=== PATIENT | male | born 1975 | race Caucasian/White ===

== ENCOUNTER 2016-12-05 20:36 | Observation (INO) ==
[2016-12-05 21:31] LABS: Bilirubin,Urine Negative (Negative); Blood,Urine Trace (Negative); Clarity,Urine Clear (Clear); Color,Urine Yellow (Yellow); Glucose,Urine (UA) Normal (Normal); Ketones,Urine Negative (Negative); Leukocyte Esterase,Urine Negative (Negative); Nitrite,Urine Negative (Negative); PH,Urine 6.5 pH Units (5.0-8.0); Protein,Urine Negative (Neg-Trace); Specific Gravity,Urine 1.013 (1.010-1.025); Urobilinogen,Urine Normal (Normal)
[2016-12-05 21:32] LABS: RBC,Urine 0-3 per hpf (0-3); Squamous Epithelial Cell,Urine Few per lpf (None-Few)
[2016-12-05 21:33] LABS: Bacteria,Urine Few per hpf (None-Few)
[2016-12-05 22:01] LABS: Basophils # 0.1 K/mcL (0.0-0.2); Basophils % 0.3 %; Eosinophils # 0.1 K/mcL (0.0-0.6); Eosinophils % 0.8 %; Hematocrit 44.3 % (37.5-50.1); Hemoglobin 14.8 g/dL (12.9-16.9); Immature Granulocytes % 0.4 % (0-4); Lymphocytes # 2.5 K/mcL (0.6-4.6); Lymphocytes % 16.7 %; Mean Corpuscular HGB Conc 33.4 g/dL (31.6-35.5); Mean Corpuscular Hemoglobin 28.6 pg (28.0-33.3); Mean Corpuscular Volume 85.7 fL (83.0-100.0); Mean Platelet Volume 9.4 fL (9.4-12.4); Monocytes # 1.3 K/mcL (0.0-1.3); Monocytes % 8.8 %; Neutrophils # 11.1 K/mcL (1.6-8.9); Platelet Count 232 K/mcL (140-400); Red Blood Count 5.17 M/mcL (4.19-5.50); Red Cell Distribution Width 12.4 % (11.5-14.5)
[2016-12-05 22:02] LABS: WBC,Urine 0-3 per hpf (0-3)
[2016-12-05 22:18] LABS: Alanine Aminotransferase 27 Units/L (0-55); Albumin 3.8 g/dL (3.5-5.0); Albumin/Globulin Ratio 1.1 (1.1-2.2); Alkaline Phosphatase 47 Units/L (38-126); Aspartate Amino Transferase 14 Units/L (5-34); BUN/Creatinine Ratio 12 (6-26); Bilirubin,Direct 0.5 mg/dL (0.0-0.5); Bilirubin,Indirect 1.1 mg/dL (0.0-1.2); Bilirubin,Total 1.6 mg/dL (0.2-1.2); Blood Urea Nitrogen 12 mg/dL (8-26); Calcium 9.3 mg/dL (8.6-10.8); Carbon Dioxide 29 mEq/L (19-29); Chloride 102 mEq/L (98-109); Globulin 3.5 g/dL (2.4-3.5); Glucose 92 mg/dL (70-99); Lipase 20 Units/L (8-78); Osmolality,Calculated 291 (280-300); Potassium 4.1 mEq/L (3.5-4.5); Sodium 141 mEq/L (136-145); Total Protein 7.3 g/dL (6.0-8.3); eGFR For African Americans > 60 (> 60); eGFR For Non-African Americans > 60 (> 60)
--- NOTE | 2016-12-05 22:44 | Emergency Department Note ---
Disposition Clinical Impression: Acute appendicitis Qualifiers: Acute appendicitis type: with localized peritonitis Qualified Code(s): K35.3 - Acute appendicitis with localized peritonitis Disposition: Admitted As Inpatient Condition: Good Referrals: NO,PCP [Primary Care Provider] - Forms: ED Satisfaction Letter, Work/School Release Time of Disposition: 23:20 Abdominal Pain HPI - General Chief Complaint: ED Abdominal Pain Stated Complaint: right lower quadrant Pain Time Seen by Provider: 12/05/16 21:52 Source: patient - History of Present Illness Pain Scale: 6 - Related Data Allergies Allergy/AdvReac Type Severity Reaction Status Date / Time No Known Allergies Allergy Verified 12/05/16 21:07 Abdominal Pain PMH - Past Medical History Medical history: Reports: non-contributory Male Surgical History: Reports: no surgical history Psychiatric history: Reports: no psych history - Social History Smoking status: Never smoker Alcohol use: Reports: occasionally Drug use: Reports: none Physical Exam - General Limitations: no limitations General appearance: alert Course - Reevaluation(s) Reevaluation #1: I examined this patient and my medical decision-making was reviewed with the COUNTRY MANAGER/PA/Advanced Practice Nurse/Resident Physician. I agree with the documented findings, disposition and treatment plan as described except to the extent set forth below. ED attending note: Patient seen with family practice resident Dr. goodwin. Please see a copy of his note for details of the H&P, evaluation, management and disposition of this patient. We independently had [id number] contact with the patient Briefly: Patient presents with several days of increasing right lower quadrant pain found her guarding and no rebound. WBC of 15,000 with mild left shift. Patient had abdominal pelvic CT with acute appendicitis in the differential. Disposition pending. Time: 22:43 Reevaluation #2: CT results back by radiology as suggestive for acute appendicitis. Dr. Lugo general surgeon directional driller has been paged. Patient and his fiancee happened so informed. Disposition pending. Time: 23:14 Reevaluation #3: Skeletal case with the surgeon directional driller Dr. Lugo. She requested IV Zosyn and that she would operate tomorrow. Antibiotics were ordered. Patient's symptoms are being controlled with IV pain meds. Admission orders place. Patient stable. Time: 23:19 Vital Signs Temperature 98.9 F 12/05/16 21:03 Pulse Rate 107 12/05/16 21:03 Respiratory Rate 18 12/05/16 21:03 Blood Pressure 135/80 12/05/16 21:03 O2 Sat by Pulse Oximetry 99 12/05/16 21:03 Temperature 100.4 F H 12/05/16 22:47 Pulse Rate 94 12/05/16 22:47 Respiratory Rate 16 12/05/16 22:47 Blood Pressure 123/78 12/05/16 22:47 O2 Sat by Pulse Oximetry 97 12/05/16 22:47 Oxygen Delivery Oxygen Delivery Room Air Abdominal Pain - Lab Data Result diagrams: 12/05/16 21:56 12/05/16 21:56 Lab Results 12/05/16 12/05/16 12/05/16 Range/Units 20:50 21:56 21:56 WBC 15.2 H (4.3-11.1) K/mcL RBC 5.17 (4.19-5.50) M/mcL Hgb 14.8 (12.9-16.9) g/dL Hct 44.3 (37.5-50.1) % MCV 85.7 (83.0-100.0) fL MCH 28.6 (28.0-33.3) pg MCHC 33.4 (31.6-35.5) g/dL RDW 12.4 (11.5-14.5) % Plt Count 232 (140-400) K/mcL MPV 9.4 (9.4-12.4) fL Immature Gran % 0.4 (0-4) % Seg Neutrophils % 73.0 % Lymphocytes % 16.7 % Monocytes % 8.8 % Eosinophils % 0.8 % Basophils % 0.3 % Neutrophils # 11.1 H (1.6-8.9) K/mcL Lymphocytes # 2.5 (0.6-4.6) K/mcL Monocytes # 1.3 (0.0-1.3) K/mcL Eosinophils # 0.1 (0.0-0.6) K/mcL Basophils # 0.1 (0.0-0.2) K/mcL Sodium 141 (136-145) mEq/L Potassium 4.1 (3.5-4.5) mEq/L Chloride 102 (98-109) mEq/L Carbon Dioxide 29 (19-29) mEq/L BUN 12 (8-26) mg/dL Creatinine 1.02 (0.72-1.25) mg/dL Est GFR ( Amer) > 60 (> 60) Est GFR (Non-Af Amer) > 60 (> 60) BUN/Creatinine Ratio 12 (6-26) Glucose 92 (70-99) mg/dL Calculated Osmolality 291 (280-300) Calcium 9.3 (8.6-10.8) mg/dL Total Bilirubin 1.6 H (0.2-1.2) mg/dL Direct Bilirubin 0.5 (0.0-0.5) mg/dL Indirect Bilirubin 1.1 (0.0-1.2) mg/dL AST 14 (5-34) Units/L ALT 27 (0-55) Units/L Alkaline Phosphatase 47 (38-126) Units/L Serum Total Protein 7.3 (6.0-8.3) g/dL Albumin 3.8 (3.5-5.0) g/dL Globulin 3.5 (2.4-3.5) g/dL Albumin/Globulin Ratio 1.1 (1.1-2.2) Lipase 20 (8-78) Units/L Urine Color Yellow (Yellow) Urine Clarity Clear (Clear) Urine pH 6.5 (5.0-8.0) pH Units Ur Specific [place] 1.013 (1.010-1.025) Urine Protein Negative (Neg-Trace) mg/dL Urine Glucose (UA) Normal (Normal) mg/dL Urine Ketones Negative (Negative) mg/dL Urine Blood Trace H (Negative) Urine Nitrite Negative (Negative) Urine Bilirubin Negative (Negative) Urine Urobilinogen Normal (Normal) mg/dL Ur Leukocyte Esterase Negative (Negative) Urine Microscopic RBC 0-3 (0-3) per hpf Urine Microscopic WBC 0-3 (0-3) per hpf Ur Squamous Epith Cells Few (None-Few) per lpf Urine Bacteria Few (None-Few) per hpf Ur Culture Indicated? NO (NO)
[2016-12-05] MEDS ORDERED: Ondansetron 4 MG/2 ML VIAL IVP ONE (23:00)
[2016-12-05] MEDS ORDERED: *HR* HYDROmorphone (PF) 1 MG/ML SYRINGE IVP ONE (23:00)
--- NOTE | 2016-12-05 23:03 | Emergency Department Note ---
Disposition Clinical Impression: Abdominal pain Qualifiers: Abdominal location: right lower quadrant Qualified Code(s): R10.31 - Right lower quadrant pain Disposition: Still a Patient Condition: Fair Referrals: NO,PCP [Primary Care Provider] - Forms: Work/School Release, ED Satisfaction Letter Time of Disposition: 23:10 Abdominal Pain HPI - General Chief Complaint: ED Abdominal Pain Stated Complaint: right lower quadrant Pain Time Seen by Provider: 12/05/16 21:52 Source: patient Mode of arrival: ambulatory Limitations: no limitations Nursing Notes Reviewed: Yes Vital Signs Reviewed: Yes - History of Present Illness HPI Narrative: Mr. Nguyen is a 41 year old male that presents with right lower quadrant pain beginning at 4 AM yesterday morning. Patient reports subjective fever and chills. He describes right lower quadrant pain is a sharp cramping pain, though more dull pain today. Worse with movement, riding in a car; better with warm bath. Admits to nausea, but denies vomiting. Denies radiation of pain. Patient states he feels as though his abdomen is more swollen than normal. Patient does note history of hemorrhoids with intermittent bleeding. Denies any other GI history. Pt Subjective Complaint: abdominal pain Onset (ago): day(s) Consistency: constant Location: RLQ Pain Severity: moderate Pain Scale: 6 Quality: cramping Radiation: none Migration to: no migration Improves with: other Worsens with: movement - Related Data Allergies Allergy/AdvReac Type Severity Reaction Status Date / Time No Known Allergies Allergy Verified 12/05/16 21:07 All systems ED: reviewed and negative except as stated. Constitutional: Reports: chills Eyes: Denies: vision change ENT ED: Denies: hearing loss Cardiovascular: Denies: chest pain Respiratory: Denies: cough, dyspnea Gastrointestinal: Reports: abdominal pain, nausea, diarrhea (loose stool x once) , hematochezia (noted past two days). Denies: vomiting, hematemesis, melena Genitourinary: Denies: dysuria, frequency, hematuria, testicular pain, testicular mass Musculoskeletal: Reports: back pain Neurological: Denies: headache Psychiatric: Denies: anxiety Endocrine: Denies: fatigue Hematological/Lymphatic: Denies: easy bleeding, easy bruising Abdominal Pain PMH - Past Medical History Medical history: Reports: other (hemorrhoids) Male Surgical History: Reports: orthopedic, other (R wrist) Psychiatric history: Reports: no psych history - Social History Smoking status: Never smoker Alcohol use: Reports: occasionally Drug use: Reports: none Physical Exam - General Limitations: no limitations General appearance: alert, in no apparent distress - Head Head exam: atraumatic, normocephalic - Eye Eye exam: Present: normal appearance, EOMI - ENT ENT exam: normal exam, mucous membranes moist - Neck Neck exam: Present: normal inspection, full ROM - Chest Chest inspection: Present: normal inspection, symmetric chest wall rise. Absent : tenderness - Respiratory Respiratory exam: Present: normal lung sounds bilaterally. Absent: respiratory distress, wheezes - Cardiovascular Cardiovascular exam: Present: regular rate, normal rhythm, +S1, +S2 - Abdominal Exam Abdominal exam: Present: soft, tenderness, normal bowel sounds. Absent: distention, guarding, rebound, rigidity, Conklin's sign, ascites, mass, bruit, hernia Abdominal tenderness: Present: RLQ - Extremities Exam Extremities exam: Present: normal inspection. Absent: tenderness, pedal edema - Back Exam Back exam: Present: normal inspection. Absent: tenderness, CVA tenderness (R), CVA tenderness (L) - Neurological Exam Neurological exam: Present: alert, oriented X3 - Psychiatric Psychiatric exam: Present: normal affect, normal mood - Skin Skin exam: Present: warm, dry, intact, normal color. Absent: rash, erythema Course Vital Signs Temperature 98.9 F 12/05/16 21:03 Pulse Rate 107 12/05/16 21:03 Respiratory Rate 18 12/05/16 21:03 Blood Pressure 135/80 12/05/16 21:03 O2 Sat by Pulse Oximetry 99 12/05/16 21:03 Temperature 98.9 F 12/05/16 21:03 Pulse Rate 107 12/05/16 21:03 Respiratory Rate 18 12/05/16 21:03 Blood Pressure 135/80 12/05/16 21:03 O2 Sat by Pulse Oximetry 99 12/05/16 21:03 Oxygen Delivery Oxygen Delivery Room Air Abdominal Pain - MDM Narrative Medical decision making narrative: Concern for acute appendicitis with patient's history and presentation. Pending CT study. Discussed case with Dr. Chacko that will follow up of study and be taking over care of patient at this time, 23:00. - Lab Data Result diagrams: 12/05/16 21:56 12/05/16 21:56 Lab Results 12/05/16 12/05/16 12/05/16 Range/Units 20:50 21:56 21:56 WBC 15.2 H (4.3-11.1) K/mcL RBC 5.17 (4.19-5.50) M/mcL Hgb 14.8 (12.9-16.9) g/dL Hct 44.3 (37.5-50.1) % MCV 85.7 (83.0-100.0) fL MCH 28.6 (28.0-33.3) pg MCHC 33.4 (31.6-35.5) g/dL RDW 12.4 (11.5-14.5) % Plt Count 232 (140-400) K/mcL MPV 9.4 (9.4-12.4) fL Immature Gran % 0.4 (0-4) % Seg Neutrophils % 73.0 % Lymphocytes % 16.7 % Monocytes % 8.8 % Eosinophils % 0.8 % Basophils % 0.3 % Neutrophils # 11.1 H (1.6-8.9) K/mcL Lymphocytes # 2.5 (0.6-4.6) K/mcL Monocytes # 1.3 (0.0-1.3) K/mcL Eosinophils # 0.1 (0.0-0.6) K/mcL Basophils # 0.1 (0.0-0.2) K/mcL Sodium 141 (136-145) mEq/L Potassium 4.1 (3.5-4.5) mEq/L Chloride 102 (98-109) mEq/L Carbon Dioxide 29 (19-29) mEq/L BUN 12 (8-26) mg/dL Creatinine 1.02 (0.72-1.25) mg/dL Est GFR ( Amer) > 60 (> 60) Est GFR (Non-Af Amer) > 60 (> 60) BUN/Creatinine Ratio 12 (6-26) Glucose 92 (70-99) mg/dL Calculated Osmolality 291 (280-300) Calcium 9.3 (8.6-10.8) mg/dL Total Bilirubin 1.6 H (0.2-1.2) mg/dL Direct Bilirubin 0.5 (0.0-0.5) mg/dL Indirect Bilirubin 1.1 (0.0-1.2) mg/dL AST 14 (5-34) Units/L ALT 27 (0-55) Units/L Alkaline Phosphatase 47 (38-126) Units/L Serum Total Protein 7.3 (6.0-8.3) g/dL Albumin 3.8 (3.5-5.0) g/dL Globulin 3.5 (2.4-3.5) g/dL Albumin/Globulin Ratio 1.1 (1.1-2.2) Lipase 20 (8-78) Units/L Urine Color Yellow (Yellow) Urine Clarity Clear (Clear) Urine pH 6.5 (5.0-8.0) pH Units Ur Specific [place] 1.013 (1.010-1.025) Urine Protein Negative (Neg-Trace) mg/dL Urine Glucose (UA) Normal (Normal) mg/dL Urine Ketones Negative (Negative) mg/dL Urine Blood Trace H (Negative) Urine Nitrite Negative (Negative) Urine Bilirubin Negative (Negative) Urine Urobilinogen Normal (Normal) mg/dL Ur Leukocyte Esterase Negative (Negative) Urine Microscopic RBC 0-3 (0-3) per hpf Urine Microscopic WBC 0-3 (0-3) per hpf Ur Squamous Epith Cells Few (None-Few) per lpf Urine Bacteria Few (None-Few) per hpf Ur Culture Indicated? NO (NO)
[2016-12-05] MEDS ORDERED: Piperacillin/Tazobactam 3.375 GM in D5% in Water (Mini-Bag+) 100 ML IVPB ONE (23:18)
[2016-12-06] MEDS ORDERED: Ondansetron 4 MG/2 ML VIAL IVP PRN ×2 (01:43→17:04)
[2016-12-06] MEDS ORDERED: 0.9 % Sodium Chloride 1,000 ML IVC SCH (01:45)
[2016-12-06] MEDS: *HR* Morphine 2 MG/ML SYRINGE IVP PRN ×5 (04:03→18:34)
[2016-12-06] MEDS ORDERED: Pantoprazole 40 MG VIAL IVP SCH (06:30)
[2016-12-06] MEDS ORDERED: Piperacillin/Tazobactam 3.375 GM in D5% in Water (Mini-Bag+) 100 ML IVPB SCH (08:00)
--- NOTE | 2016-12-06 08:26 | General Surg History&Physical ---
<Rashad Wayne Chinmay - Last Filed: 12/06/16 08:20> Date of Encounter: 12/06/16 Time of Encounter: 08:20 Assessment and Plan (1) Acute appendicitis Current Visit: Yes Status: Acute The assessment and plan as outlined above was discussed with the patient and/or family members who expressed understanding and agreement. All questions were answered. Patient with acute RLQ pain with associated subjective fevers, chills, nausea, and leukocytosis (15.2). no bands. RLQ exquisitely tender to palpation CT A/P: 1. Acute appendicitis. Inflamed appendix measuring 18 mm with significant periappendiceal inflammatory changes and multiple small nodes. No abscess, free air or free fluid. 2. Otherwise no acute findings within the abdomen or pelvis. 3. Hepatic steatosis. Plan: NPO, IVF NS @125ml/hr, antiemetics, pain control, Zosyn, Gi prophylaxis. Likely to go to OR today for appendectomy. Qualifiers: Acute appendicitis type: unspecified acute appendicitis type Qualified Code (s): K35.80 - Unspecified acute appendicitis (2) DVT prophylaxis Current Visit: Yes Status: Acute The assessment and plan as outlined above was discussed with the patient and/or family members who expressed understanding and agreement. All questions were answered. EPCD's History of Present Illness Chief complaint: Abdominal Pain HPI: Mr. Nguyen is a 41 year old male who presented to [facility] ED with right lower quadrant abdominal pain. The pain began acutely on in the RLQ. He described the pain as sharp and stabbing, 10/10, non-radiating, mild improvement with tylenol, alleve, and boubacar-seltzer. It is worse with movement and better with rest and hot bath. He has never had pain like this before. It was associated with nausea, subjective fevers, and chills. He denies emesis, diarrhea, constipation, diaphoresis, melena, chest pain, sob. He takes no medications regularly and states he has no known medication allergies. Past Med Surg Social Fam HX - Past Medical History Medical history: non-contributory Psychiatric history: no psych history - Past Surgical History Surgical History: orthopedic, other - Social History Smoking Status: Never smoker Alcohol use: occasionally Drug use: none - Family History Mother Living Status: Still Living Hx Family Endocrine Disorder: Yes Medications and Allergies No Known Home Drugs 12/06/16 [History] Allergies No Known Allergies Allergy (Verified 12/05/16 21:07) Review of Systems All systems PM: A 10-system review of systems was performed and is negative for pertinent findings except as documented above in the HPI. General Surgery Exam Initial Vital Signs Temp Pulse Resp BP Pulse Ox 98.9 F 107 18 135/80 99 12/05/16 21:03 12/05/16 21:03 12/05/16 21:03 12/05/16 21:03 12/05/16 21:03 - General physical appearance well developed, well nourished, no distress - Eyes PERRL, normal ocular movement - Neck trachea midline - Respiratory normal expansion, clear to auscultation - Cardiovascular Cardiovascular exam: Present: RRR, no murmurs/rubs/gallops - Abdomen Abdomen general surgery: Present: bowel sounds present, soft, tender. Absent: guarding, rebound, rigid Abdominal Tenderness: Present: RLQ - Neurologic Present: CN 2-12 grossly intact - Psychiatric Psychiatric general surgery: Present: A&Ox3 Results - Labs 12/05/16 21:56 12/05/16 21:56 Abnormal lab results WBC 15.2 K/mcL (4.3-11.1) H 12/05/16 21:56 Neutrophils # 11.1 K/mcL (1.6-8.9) H 12/05/16 21:56 Total Bilirubin 1.6 mg/dL (0.2-1.2) H 12/05/16 21:56 Urine Blood Trace (Negative) H 12/05/16 20:50 All other labs normal. - VTE Documentation of Mechanical Device: Intermittent pneumatic compression device <Jackelyn Paul - Last Filed: 12/06/16 17:47> Date of Encounter: 12/06/16 Assessment and Plan (1) Acute appendicitis Current Visit: Yes Status: Acute the ct results and labs were discussed with patient. Will plan laparoscopic appendectomy, possile open, risks and benefits discussed and he wishes to proceed. zosyn for Abx npo prn pain control prn antiemetics gi/dvt prophylaxis. The assessment and plan as outlined above was discussed with the patient and/or family members who expressed understanding and agreement. All questions were answered. Qualifiers: Acute appendicitis type: unspecified acute appendicitis type Qualified Code (s): K35.80 - Unspecified acute appendicitis (2) DVT prophylaxis Current Visit: Yes Status: Acute The assessment and plan as outlined above was discussed with the patient and/or family members who expressed understanding and agreement. All questions were answered. History of Present Illness HPI: Mr. Nguyen is a 41 year old male Review of Systems All systems PM: A 10-system review of systems was performed and is negative for pertinent findings except as documented above in the HPI. General Surgery Exam Initial Vital Signs Temp Pulse Resp BP Pulse Ox 98.9 F 107 18 135/80 99 12/05/16 21:03 12/05/16 21:03 12/05/16 21:03 12/05/16 21:03 12/05/16 21:03 - General physical appearance well developed, well nourished, moderate distress, moderate pain, obese - Eyes PERRL, normal ocular movement - ENT normal mucosa, atraumatic, normocephalic - Respiratory normal expansion, clear to auscultation - Cardiovascular Cardiovascular exam: Present: RRR - Abdomen Abdomen general surgery: Present: bowel sounds present, soft, tender. Absent: distended, guarding, rebound Abdominal Tenderness: Present: RLQ, diffusely - Integumentary Integumentary general surgery: Present: warm and dry, no abnormal pigmentation - Neurologic Present: CN 2-12 grossly intact - Musculoskeletal Present: normal posture - Psychiatric Psychiatric general surgery: Present: A&Ox3, speech is normal Results - Labs 12/05/16 21:56 12/05/16 21:56 Short CBC 12/05/16 Range/Units 21:56 WBC 15.2 H (4.3-11.1) K/mcL Hgb 14.8 (12.9-16.9) g/dL Hct 44.3 (37.5-50.1) % Plt Count 232 (140-400) K/mcL Neutrophils # 11.1 H (1.6-8.9) K/mcL BMP 12/05/16 Range/Units 21:56 Sodium 141 (136-145) mEq/L Potassium 4.1 (3.5-4.5) mEq/L Chloride 102 (98-109) mEq/L Carbon Dioxide 29 (19-29) mEq/L BUN 12 (8-26) mg/dL Creatinine 1.02 (0.72-1.25) mg/dL Glucose 92 (70-99) mg/dL Calcium 9.3 (8.6-10.8) mg/dL Cardiac Enzymes 12/06/16 Range/Units 10:51 Troponin I 0.00 (0-0.03) ng/mL Liver Function 12/05/16 Range/Units 21:56 Total Bilirubin 1.6 H (0.2-1.2) mg/dL Direct Bilirubin 0.5 (0.0-0.5) mg/dL AST 14 (5-34) Units/L ALT 27 (0-55) Units/L Alkaline Phosphatase 47 (38-126) Units/L Albumin 3.8 (3.5-5.0) g/dL Urine 12/05/16 Range/Units 20:50 Urine Color Yellow (Yellow) Urine Clarity Clear (Clear) Urine pH 6.5 (5.0-8.0) pH Units Ur Specific [place] 1.013 (1.010-1.025) Urine Protein Negative (Neg-Trace) mg/dL Urine Glucose (UA) Normal (Normal) mg/dL Vital Signs Temp Pulse Resp BP Pulse Ox 12/06/16 17:36 99.1 F 83 16 120/65 94 12/06/16 17:06 97.6 F 86 15 123/81 94 12/06/16 16:52 99.3 F 80 16 125/84 93 12/06/16 16:42 80 16 129/80 92 12/06/16 16:32 103 16 119/67 96 12/06/16 16:22 98.3 F 95 16 128/65 96 12/06/16 11:40 99.0 F 89 16 116/68 98 12/06/16 06:24 98.3 F 87 16 129/68 95 12/06/16 01:19 98.1 F 85 16 127/74 94 12/06/16 00:11 98.4 F 16 104/66 12/05/16 22:47 100.4 F H 94 16 123/78 97 12/05/16 21:03 98.9 F 107 18 135/80 99 Intake and Output 12/06/16 12/06/16 12/06/16 07:59 15:59 23:59 Intake Total 100 / 100 Output Total 20 / 20 Balance 100 / 100 -20 / -20 Intake: IV Fluids 100 / 100 Zosyn 3.375 GM In 100 / 100 Dextrose 5% (Minibag+) 100 ML 100 ML @ 25 mls/hr IVPB Q8HR [facility] Rx#: [id number] Output: Estimated Blood Loss Other: # Voids 1 - Imaging CT scan - abdomen: report reviewed, image reviewed CT scan - pelvis: report reviewed, image reviewed - Attending Attestation I examined this patient and my medical decision-making was reviewed with the FUR CLEANER/PA/Advanced Practice Nurse/Resident Physician. I agree with the documented findings, disposition and treatment plan as described except to the extent set forth below.
[2016-12-06] MEDS ORDERED: Naloxone 0.4 MG/ML INJ IVP PRN ×2 (09:24→17:04)
--- NOTE | 2016-12-06 13:23 | Anesthesia Evaluation PreOp ---
Date of Encounter: 12/06/16 Time of Encounter: 13:22 - Past History Planned Operation: Lap appendectomy Cardiac History: Denies any Significant Hx Pulmonary History: Denies Any Significant HX JEWEL GAUGER History: Denies Any Significant HX Other Medical History: Denies Any Significant HX Anesthesia History: No Prior Anesthetic Complications, Past Anesthesia (R wrist) Alcohol Use: occasionally Drug use: none Medications and Allergies No Known Home Drugs 12/06/16 [History] Allergies No Known Allergies Allergy (Verified 12/05/16 21:07) - Meds/Allergy Pre-op Review Medications Reviewed: Yes Allergies Reviewed: Yes Beta Blockers on Current Med List: No Anesthesia Results - Labs 12/05/16 21:56 12/05/16 21:56 - Imaging EKG: image reviewed (SR) Anesthesia Exam Vital Signs/O2 Sat, Most Current Temp Pulse Resp BP Pulse Ox 99.0 F 89 16 116/68 98 12/06/16 11:40 12/06/16 11:40 12/06/16 11:40 12/06/16 11:40 12/06/16 11:40 Weight: 109kg NPO (# of Hours): >8 - HEENT Pupil (Motor): Pupils equal, EOMI Mallampati: III Teeth: Normal Oral Opening: Less than or equal to 3 - JEWEL GAUGER LOC: Oriented JEWEL GAUGER Motor: Normal RUE, Normal LUE, Normal RLE, Normal LLE, Normal Face JEWEL GAUGER Sensory: Normal: RUE, LUE, RLE, LLE, Face - Cardiac Rhythm: Regular Murmur: None - Pulmonary Breath Sounds: bilateral Clear Respiratory Effort: Symmetrical Anesthesia Assess/Plan ASA Score: 2, E Modified [place] Scale for Level of Consciousness: Cooperative, oriented, and tranquil Anesthetic Plan: General (GETA, r/b/a discussed, questions answered, consent obtained) Monitoring Plan: Standard Monitors Recovery Plan: PACU
[2016-12-06] MEDS ORDERED: Lidocaine -MPF 2% 2 ML VIAL ONE (13:27)
[2016-12-06] MEDS ORDERED: *HR* Rocuronium Bromide 50 MG/5 ML VIAL ONE (13:27)
[2016-12-06] MEDS ORDERED: *HR* Propofol 200 MG/20 ML VIAL IVP ONE (13:27)
[2016-12-06] MEDS ORDERED: Lidocaine -MPF 4% 5 ML AMPUL ONE (13:27)
[2016-12-06] MEDS ORDERED: *HR* FentaNYL (PF) 100 MCG/2 ML VIAL ONE (13:28)
[2016-12-06] MEDS ORDERED: *HR* Midazolam HCl 2 MG/2 ML VIAL ONE (13:28)
[2016-12-06] MEDS ORDERED: Ringers Solution, Lactated 1,000 ML ONE (14:14)
[2016-12-06] MEDS ORDERED: Ringers Solution, Lactated 1,000 ML IVC SCH ×2 (14:30→15:15)
[2016-12-06] MEDS ORDERED: *HR* Succinylcholine 200 MG/10 ML VIAL IVP ONE (14:42)
[2016-12-06] MEDS ORDERED: Ondansetron 4 MG/2 ML VIAL ONE (15:06)
[2016-12-06] MEDS ORDERED: Dexamethasone 4 MG/ML VIAL ONE ×2 (15:06)
[2016-12-06] MEDS ORDERED: Neostigmine Methylsulfate 3 MG/3 ML SYRINGE ONE (15:15)
[2016-12-06] MEDS ORDERED: Ondansetron 4 MG/2 ML VIAL IVP ONE (15:15)
[2016-12-06] MEDS ORDERED: *HR* Promethazine 25 MG/ML VIAL IVP PRN (15:15)
[2016-12-06] MEDS ORDERED: *HR* Meperidine 25 MG/ML SYRINGE IVP PRN (15:15)
[2016-12-06] MEDS ORDERED: *HR* Labetalol 100 MG/20 ML MDV IVP PRN (15:15)
[2016-12-06] MEDS ORDERED: *HR* HYDROmorphone (PF) 1 MG/ML SYRINGE IVP PRN ×2 (15:15→17:04)
[2016-12-06] MEDS ORDERED: *HR* HYDROmorphone 2 MG/ML SYRINGE ONE (15:19)
--- NOTE | 2016-12-06 16:00 | Operative Note ---
Date of procedure: 12/06/16 Pre-op diagnosis: acute appendicitis Post-op diagnosis: same Procedure: Laparoscopic appendectomy Complications: none immediate Anesthesia: GETA, local Local Anesthetics: 0.5% Sensorcaine HCL SubQ (cc) (30) Surgeon: Jackelyn Paul Estimated blood loss (cc): 20 Specimen: appendix Condition: stable Disposition: PACU Procedure in Detail: The patient was brought into the operating suite and placed supine on the operating table. Sign-in was performed and everyone was in agreement. Anesthesia was induced and patient was endotracheally intubated by anesthesia without incident. An OG tube was placed by anesthesia. The abdomen was prepped and draped in the usual sterile fashion. A timeout was performed and again everyone was in agreement. A supraumbilical incision was made through the skin and the subcutaneous tissue with an 11 blade. Towel clamps were placed on either side of the umbilicus for retraction. S-retractors were used to dissect down to the anterior abdominal wall linea alba fascia. A Veress needle was placed into this incision and a water drop test confirmed placement and the abdomen was insufflated. We then entered the abdomen with the 5 mm 0 degree laparoscope on a 5 mm X-dianne trocar. The area under entry was visualized and there was no bleeding and no apparent bowel injury. We placed a suprapubic 5 mm port under direct visualization after first incising the skin with an 11 blade. The laparoscope was placed through this and we exchanged the supraumbilical port for a 12 mm port under direct visualization. We then placed another 5 mm port in the left lower quadrant position under direct visualization after first incising the skin with an 11 blade. The patient was placed in slight Trendelenburg left side down position. The cecum was located as was the appendix. The appendix was adhesed with inflammation to the terminal ileum, and was from each other by gentle blunt dissection and grasped and retracted anteriorly and caudally with a laparoscopic Lachelle. A [place] was used to dissect between the mesoappendix and the appendix at the base of the cecum. THere was a lot of fibrinous material in the RLQ. The mesoappendix was transected with a laparoscopic flex-ex ETS stapler using a white load. The appendix was transected at the base of the cecum with the same stapler utilizing a white load. There was bleeding at the meseappendix base which was controlled with one 5mm metal hemoclip. The appendix was placed in a laparoscopic Endo Catch bag and removed via the supraumbilical incision site. Both staple lines were evaluated and there was no bleeding and both staple lines were intact. The area was copiously irrigated with sterile saline which was then suctioned free from the abdomen. The insufflation was suctioned free from the abdomen and all trochars removed. We closed the abdominal wall at the supraumbilical incision site with an 0 Vicryl ojugxa-po-cbmmb stitch. A 30 cc of 0.5% Marcaine was injected subcutaneously at the 3 port sites. The skin at the two 5 mm port sites was closed with 4-0 Monocryl interrupted subcuticular stitches. The skin at the supraumbilical incision site was closed with a 4-0 Monocryl running subcuticular stitch. Steri-Strips and mastisol were applied to the wounds. The patient was extubated in the OR and tolerated the procedure well and was taken to PACU after all lap and instrument counts were correct at the end of the case.
--- NOTE | 2016-12-06 16:57 | Anesthesia Evaluation Post Op ---
Date of Encounter: 12/06/16 Time of Encounter: 16:55 - Vital Signs Vital Signs: vss - Lungs Lungs: Clear Ascult./Percussion (enc cough/breathing and IS usage.) - Airway Airway: Non-obstructed - Cardiovascular Baseline Rhythm - Mental Status Mental Status: Alert & Oriented, Answers Appropriately - Pain Pain Scale used: Loi (Faces) - Nausea Vomiting Nausea Vomiting: Not Present - Hydration Hydration: Ice chips - Discharge PostOp Status: Transfer Patient to floor
[2016-12-06] MEDS: *HR* OxyCODONE/APAP 5/325 TABLET PO PRN (17:23)
[2016-12-06] MEDS: 0.9 % Sodium Chloride 1,000 ML IVC SCH (17:24)
[2016-12-07] MEDS: *HR* OxyCODONE/APAP 5/325 TABLET PO PRN ×4 (00:27→13:29)
[2016-12-07] MEDS: Piperacillin/Tazobactam 3.375 GM in D5% in Water (Mini-Bag+) 100 ML IVPB SCH ×2 (00:27→07:32)
[2016-12-07] MEDS: 0.9 % Sodium Chloride 1,000 ML IVC SCH (00:32)
[2016-12-07] MEDS: *HR* Morphine 2 MG/ML SYRINGE IVP PRN (02:58)
[2016-12-07 05:44] LABS: Basophils % 0.1 %; Hematocrit 37.3 % (37.5-50.1); Hemoglobin 12.1 g/dL (12.9-16.9); Immature Granulocytes % 0.7 % (0-4); Lymphocytes # 1.2 K/mcL (0.6-4.6); Lymphocytes % 9.3 %; Mean Corpuscular HGB Conc 32.4 g/dL (31.6-35.5); Mean Corpuscular Hemoglobin 28.1 pg (28.0-33.3); Mean Corpuscular Volume 86.7 fL (83.0-100.0); Mean Platelet Volume 9.6 fL (9.4-12.4); Monocytes # 0.9 K/mcL (0.0-1.3); Monocytes % 6.8 %; Neutrophils # 10.4 K/mcL (1.6-8.9); Platelet Count 225 K/mcL (140-400); Red Cell Distribution Width 12.1 % (11.5-14.5); Segmented Neutrophils % 83.1 %
[2016-12-07 06:14] LABS: BUN/Creatinine Ratio 9 (6-26); Blood Urea Nitrogen 9 mg/dL (8-26); Calcium 8.8 mg/dL (8.6-10.8); Carbon Dioxide 25 mEq/L (19-29); Chloride 104 mEq/L (98-109); Glucose 177 mg/dL (70-99); Osmolality,Calculated 291 (280-300); Potassium 4.2 mEq/L (3.5-4.5); Sodium 139 mEq/L (136-145); eGFR For African Americans > 60 (> 60); eGFR For Non-African Americans > 60 (> 60)
[2016-12-07] MEDS ORDERED: Pantoprazole 40 MG VIAL IVP SCH (06:30)
--- NOTE | 2016-12-07 10:13 | Discharge Summary ---
Date of Encounter: 12/07/16 Time of Encounter: 10:09 - Discharge Diagnosis (1) Acute appendicitis Priority: Primary Status: Resolved Qualifiers: Acute appendicitis type: unspecified acute appendicitis type Qualified Code (s): K35.80 - Unspecified acute appendicitis - Discharge Medications Prescriptions: OxyCODONE/APAP 5/325 [Percocet 5/325 MG] 1 each PO Q4HR PRN #30 tablet PRN Reason: Pain Docusate [Colace] 100 mg PO BID #30 capsule Home Medications: Docusate [Colace] 100 mg PO BID #30 capsule 12/07/16 [Rx] OxyCODONE/APAP 5/325 [Percocet 5/325 MG] 1 each PO Q4HR PRN #30 tablet 12/07/16 [Rx] Allergies/Adverse Reactions: Allergies No Known Allergies Allergy (Verified 12/05/16 21:07) General Surgery Exam Initial Vital Signs Temp Pulse Resp BP Pulse Ox 98.9 F 107 18 135/80 99 12/05/16 21:03 12/05/16 21:03 12/05/16 21:03 12/05/16 21:03 12/05/16 21:03 - General physical appearance well developed, well nourished, no distress - Eyes normal ocular movement - ENT normal mucosa, atraumatic, normocephalic - Neck trachea midline - Respiratory normal respiratory effort, clear to auscultation - Cardiovascular Cardiovascular exam: Present: RRR, 15, 16 - Abdomen Abdomen general surgery: Present: bowel sounds present, soft, tender (expected post-operative tenderness) - Incision Incision: Present: clean and dry, intact - Integumentary Integumentary general surgery: Present: warm and dry - Neurologic Present: CN 2-12 grossly intact - Musculoskeletal Present: normal gait, normal posture - Psychiatric Psychiatric general surgery: Present: appropriate, oriented to person, oriented to place, oriented to time, speech is normal, memory intact Date of admission: 12/05/16 23:45 Primary care physician: PCP GIULIA Discharging clinician: Jackelyn Paul (Earlene Juarez) Anticipated date of discharge: 12/07/16 - Patient Status Disposition: Home, Self-Care Condition: Good Overall status at discharge: patient is back to baseline - Discharge Instructions Follow Up With: GIULIA,PCP [Primary Care Provider] - Eliane Juarez [employer]ENT [Advanced Practice Nurse] - 12/22/16 8:45 am (surgery follow-up) Additional Instructions: Surgical instructions: #1 May shower today, no tub bath X 2 weeks #2 Wash incisions with soap and water and pat dry daily #3 No lifting/pushing/pulling greater than 15 lb. X 2 weeks #4 No driving until off narcotics for 24 hours and able to safely react in the car #5 May climb stairs - Diet and Activity Activity: other (See additional instructions) Diet: advance to your usual diet - Hospital Course Hospital course: Mr. Nguyen is a 41 year old male presented to the hospital with acute onset of abdominal pain. He was found to have acute appendicitis and was taken to the operating room for a laparoscopic appendectomy with Dr. Paul. On POD #1 he is doing well. His vitals are stable and he is afebrile, he is tolerating liquids without nausea/vomiting, his pain is controlled, he is voiding and ambulating without difficulty. We will advance him to regular diet and plan to discharge to home with oral antibiotics so long as he tolerates his lunch. Plan for outpatient follow-up in 10-14 days. - Time Spent with Patient Total time spent providing and/or coordinating discharge services: Less than 30 minutes Labs on day of discharge: Labs from last 24 hours 12/07/16 12/07/16 12/06/16 05:28 05:28 10:51 WBC 12.5 H RBC 4.30 Hgb 12.1 L D Hct 37.3 L MCV 86.7 MCH 28.1 MCHC 32.4 RDW 12.1 Plt Count 225 MPV 9.6 Immature Gran % 0.7 Seg Neutrophils % 83.1 Lymphocytes % 9.3 Monocytes % 6.8 Eosinophils % 0.0 Basophils % 0.1 Neutrophils # 10.4 H Lymphocytes # 1.2 Monocytes # 0.9 Eosinophils # 0.0 Basophils # 0.0 Sodium 139 Potassium 4.2 Chloride 104 Carbon Dioxide 25 BUN 9 Creatinine 0.96 Est GFR ( Amer) > 60 Est GFR (Non-Af Amer) > 60 BUN/Creatinine Ratio 9 Glucose 177 H Calculated Osmolality 291 Calcium 8.8 Troponin I 0.00 - Attending Attestation I examined this patient and my medical decision-making was reviewed with the SONAR WATCHSTANDER/PA/Advanced Practice Nurse/Resident Physician. I agree with the documented findings, disposition and treatment plan as described except to the extent set forth below.
--- NOTE | 2016-12-08 09:06 | Electrocardiograph Report ---
[place] [id number] Test Date: 2016-12-06 Pat Name: Capo Nguyen Department: 114 Room: [facility] Gender: M Lamination Technician: : 1975 Requested By: Rashad Wayne Order Number: [id number] Reading MD: Marcos Hinkle MD Measurements Intervals [place] Rate: 76 P: 44 MI: 174 QRS: 61 QRSD: 88 T: 48 QT: 366 QTc: 397 Interpretive Statements SINUS RHYTHM Electronically Signed On 12-08-2016 9:04:29 EDT by Marcos Hinkle MD
[2016-12-08 19:08] VITALS: BP 136/64
== END 2016-12-07 13:42 | disposition home or self-care (01) ==
LOC: EMEROO 20:36 → 3NENU 20:36
PROVIDERS: ADMIT Surgery; ATTEND Surgery